=== PATIENT | female | born 1950 | race Caucasian/White ===

== ENCOUNTER 2017-07-13 08:00 | Emergency (ER) | payer MEDICARE, OTHER ==
[~2017-07-13] VITALS: Ht 170.2 cm; Wt 73.2 kg
[2017-07-13 09:20] LABS: ALBUMIN 3.5 g/dL (3.4-5.0); ANION GAP 9 mmol/L (5-15); CALCIUM 9.1 mg/dL (8.5-10.1); CHLORIDE 110 mmol/L (98-107); CREATININE 0.56 mg/dL (0.55-1.02)
[2017-07-13 09:30] LABS: MEAN CORPUSCULAR HEMOGLOBIN 16.2 pg (27.0-34.8); MEAN CORPUSCULAR HGB CONC 28.6 g/dL (32.4-35.8); MEAN CORPUSCULAR VOLUME 56.7 fL (80-100); RED CELL DISTRIBUTION WIDTH 26.1 % (9.6-15.2)
[2017-07-13 09:31] LABS: HEMOGRAM NOTE RECHECKED
[2017-07-13 09:50] LABS: MD YES
[2017-07-13 09:52] LABS: BAND#(MANUAL) 0.14 x10^3/uL; BANDS%(MANUAL) 3 % (0-7); BASOS#(MANUAL) 0.14 x10^3/uL (0-0.1); BASOS% (MANUAL) 3 % (0-1); LYMPH#(MANUAL) 2.12 x10^3/uL (1-3.4); LYMPHS% (MANUAL) 46 % (22-44); MONOS#(MANUAL) 0.23 x10^3/uL (0.3-2.7); MONOS% (MANUAL) 5 % (2-9); SEG#(MANUAL) 1.98 x10^3/uL (1.8-6.8); SEGS% (MANUAL) 43 % (42-75)
[2017-07-13 09:53] LABS: MICROCYTOSIS 2+; OVALOCYTES 2+; SCHISTOCYTES 1+
[2017-07-13 09:54] LABS: HYPOCHROMIA 3+; SPHEROCYTES 1+
[2017-07-13 10:06] LABS: MEAN PLATELET VOLUME 8.2 fL (7.4-10.4); PLATELET COUNT 90 x10^3/uL (130-400)
[2017-07-13 10:07] LABS: <PLATELET ESTIMATE> DECREASED; <PLT MORPHOLOGY> NORMAL PLT MORPH
[2017-07-13 10:10] LABS: ANISOCYTOSIS 2+
[2017-07-13 10:59] VITALS: BP 117/60
[2017-07-13 11:14] VITALS: BP 116/63
[2017-07-13 11:29] VITALS: BP 117/60
[2017-07-13 12:32] VITALS: BP 133/69
[2017-07-13 12:47] VITALS: BP 117/60
[2017-07-13 13:02] VITALS: BP 132/74
== END 2017-07-13 13:54 | disposition home or self-care (01) ==
LOC: ED 09:32
DX: D50.0 Iron deficiency anemia secondary to blood loss (chronic) (principal); D69.6 Thrombocytopenia, unspecified; Z98.84 Bariatric surgery status; D50.9 Iron deficiency anemia, unspecified
CPT/HCPCS: 36415; 36430; 80048; 82040; 85025; 86850; 86900; 86923; 99285; P9016